=== PATIENT | female | born 1970 | race Caucasian/White ===

== ENCOUNTER 2020-08-06 19:53 | Emergency (ER) | payer BC ==
[2020-08-06] MEDS ORDERED: Ketorolac 60 MG/2 ML SDV IM ONE (20:25)
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
[2020-08-06] MEDS ORDERED: Promethazine 25 MG/ML SDV IM ONE (20:26)
[2020-08-06] MEDS ORDERED: Orphenadrine 60 MG/2 ML Inj IM SCH (20:30)
[2020-08-06 20:40] VITALS: BP 157/97; PULSE 73
== END 2020-08-06 20:53 | disposition home or self-care (01) ==
LOC: CC.ED 19:53
DX: R51.9 Headache, unspecified (principal); R11.0 Nausea; M54.2 Cervicalgia; H53.149 Visual discomfort, unspecified; J45.909 Unspecified asthma, uncomplicated; K21.9 Gastro-esophageal reflux disease without esophagitis; Z79.899 Other long term (current) drug therapy; Z88.5 Allergy status to narcotic agent; Z88.2 Allergy status to sulfonamides; Z91.041 Radiographic dye allergy status
CPT/HCPCS: 96372; 99283; J1885; J2360; J2550